=== PATIENT | male | born 1970 | race Caucasian/White ===

== ENCOUNTER 2018-10-06 12:35 | Emergency (ER) | payer OTHER | END 2018-10-06 14:44 | disposition left against medical advice (07) | LOC: ER 12:35 | DX: Z53.21 Procedure and treatment not carried out due to patient leaving prior to being seen by health care provider (principal) ==

== ENCOUNTER → 2025-03-09 | Outpatient (CLI) | payer OTHER | LOC: LAB SHORT 15:41 → LAB 15:41 | DX: B35.1 Tinea unguium (principal) | CPT/HCPCS: 88304; 88312 ==